=== PATIENT | male | born 1960 | race Caucasian/White ===

== ENCOUNTER 2019-01-27 09:08 | Emergency (ER) | payer MEDICAID, OTHER ==
[~2019-01-27] VITALS: Ht 188 cm; Wt 100.0 kg
[2019-01-27 09:29] VITALS: BP 149/89
== END 2019-01-27 10:15 | disposition home or self-care (01) ==
LOC: ER 09:09
DX: L03.317 Cellulitis of buttock (principal); L08.89 Other specified local infections of the skin and subcutaneous tissue; B95.61 Methicillin susceptible Staphylococcus aureus infection as the cause of diseases classified elsewhere
CPT/HCPCS: 10160; 99284